=== PATIENT | male | born 1950 | race Two or more races ===

== ENCOUNTER 2019-03-27 12:06 | Emergency (ER) | payer OTHER | END 2019-03-27 13:05 | disposition left against medical advice (07) | LOC: ER 12:06 | DX: R10.9 Unspecified abdominal pain (principal); Z53.21 Procedure and treatment not carried out due to patient leaving prior to being seen by health care provider ==

== ENCOUNTER 2020-03-10 11:33 | Emergency (ER) | payer OTHER, MEDICAID ==
[~2020-03-10] VITALS: Ht 175.3 cm; Wt 63.5 kg
[2020-03-10 11:58] VITALS: BP 118/80
== END 2020-03-10 16:00 | disposition home or self-care (01) ==
LOC: EDBD 11:33 → ER 11:33
DX: U07.1 COVID-19 (principal); R53.1 Weakness
CPT/HCPCS: 71045